=== PATIENT | female | born 2000 | race Caucasian/White ===

== ENCOUNTER 2021-09-14 13:36 | Emergency (ER) | payer OTHER, SELFPAY ==
[2021-09-14 13:57] VITALS: BP 127/63; PULSE 88; RESP 18; TEMP 37.3; O2SAT 100; BMI 25.4
[2021-09-14 14:29] LABS: COVID19 -Nasal RAPID POSITIVE (Negative)
--- NOTE | 2021-09-14 14:32 | ED.URI ---
HPI - URI/Sore Throat <Robel Shetty PA-C - Last Filed: 09/14/21 14:47> General Chief Complaint: Upper Respiratory Symptoms Stated Complaint: COUGH,HEADACHE,RUNNY NOSE Time Seen by Provider: 09/14/21 14:01 Source: patient Mode of arrival: Ambulatory History of Present Illness HPI Narrative: Tere presents today with chief complaint sore throat, cough, headache, body aches that started yesterday. She reports that her other family members test positive for COVID. She denies any significant chest pain, difficulty breathing, nausea, vomiting, diarrhea or any other acute concerns or complaints at this time. She is otherwise healthy and has no known significant past medical problems. Review of Systems <BEVERLY Castro Last Filed: 09/14/21 14:47> Review of Systems Narrative: As per HPI Patient History <BEVERLY Castro Last Filed: 09/14/21 14:47> Social History Smoking Status: Never smoker Smoking Status: Never smoker alcohol intake frequency: other Substance Use Type: does not use Exam <BEVERLY Castro Last Filed: 09/14/21 14:47> Narrative Exam Narrative: Exam Narrative: Const General: cooperative, healthy appearing, comfortable, no acute distress, well developed and well groomed Nutritional Appearance: average body habitus Orientation: alert and oriented x3 HENMT Head: normal to inspection and atraumatic Ears: hearing grossly normal bilaterally Nose: external nose normal and nares normal Face and sinus: normal facial exam Neck Neck: normal visual inspection and supple Resp Effort & Inspection: normal respiratory effort, able to speak in complete sentences, no audible wheezes, not labored, no nasal flaring and no respiratory distress Neuro General: alert, oriented x3, gait normal, tone normal and moves all extremities Cognition: normal cognition Speech: speech normal Gait: normal gait Psych Appearance: grossly normal and well kempt Mental Status: mental status grossly normal Speech and Movement: speech and movement normal Mood: congruent mood Affect: normal affect Initial Vital Signs Initial Vital Signs: Vital Signs Temperature 99.1 F 09/14/21 13:57 Pulse Rate 88 09/14/21 13:57 Respiratory Rate 18 09/14/21 13:57 Blood Pressure 127/63 09/14/21 13:57 Pulse Oximetry 100 09/14/21 13:57 <Batool Osorio DO - Last Filed: 09/15/21 07:43> Initial Vital Signs Initial Vital Signs: Vital Signs Temperature 99.1 F 09/14/21 13:57 Pulse Rate 88 09/14/21 13:57 Respiratory Rate 18 09/14/21 13:57 Blood Pressure 127/63 09/14/21 13:57 Pulse Oximetry 100 09/14/21 13:57 Course <Robel Shetty PA-C - Last Filed: 09/14/21 14:47> Orders Ordered: ED Orders 09/14/21 13:50 COVID19 -Nasal swab/Pre-Proc Stat Vital Signs Vital signs: Vital Signs - 8 hr 09/14/21 13:57 Temperature 99.1 F Pulse Rate 88 Respiratory Rate 18 Blood Pressure 127/63 Pulse Oximetry 100 <Batool Osorio DO - Last Filed: 09/15/21 07:43> Orders Ordered: ED Orders 09/14/21 13:50 COVID19 -Nasal swab/Pre-Proc Stat Vital Signs Vital signs: Vital Signs - 8 hr 09/14/21 13:57 Temperature 99.1 F Pulse Rate 88 Respiratory Rate 18 Blood Pressure 127/63 Pulse Oximetry 100 MDM - URI/Sore Throat <BEVERLY Castro Last Filed: 09/14/21 14:47> Lab Data Labs: Lab Results 09/14/21 Range/Units 13:50 SARS-CoV-2 (PCR) Positive H (Negative) MDM Narrative Medical decision making narrative: Patient is young, healthy and has reassuring vital signs. Outpatient therapy is appropriate at this time. Return precautions were discussed and patient verbalizes understanding and agrees to the plan and has no further concerns at this time. <Batool Osorio DO - Last Filed: 09/15/21 07:43> Lab Data Labs: Lab Results 09/14/21 Range/Units 13:50 SARS-CoV-2 (PCR) Positive H (Negative) Discharge Plan Departure Patient Disposition: Home Clinical Impression: COVID-19 Instructions: DI for COVID-19 (Suspected or Confirmed ) Activity Restrictions/Additional Instructions: It was very nice to meet you this afternoon. You tested positive for COVID. Please go home and self isolate according to the CDC's recommendations. You can use [id number] medications to treat your symptoms. If you develop chest pain, difficulty breathing, have oxygen saturation consistently less than 93-94% on room air then please return for re-evaluation. Thank you Robel Shetty PA-C <Batool Osorio DO - Last Filed: 09/15/21 07:43> Cosign ED Attending Cosignature Attestation: I was immediately available in the department for consultation. Documentation has been reviewed.
== END 2021-09-14 14:49 | disposition home or self-care (01) ==
PROVIDERS: Emergency Medicine; Emergency Provider Physician Assistant
DX: U07.1 COVID-19 (principal)
CPT/HCPCS: 87635; 99281; C9803